=== PATIENT | female | born 1985 | race Caucasian/White ===

== ENCOUNTER 2020-09-01 17:34 | Emergency (ER) | payer BC, SELFPAY ==
[2020-09-01 17:49] VITALS: BP 124/80; PULSE 97; RESP 20; TEMP 36.4; O2SAT 100
--- NOTE | 2020-09-01 18:57 | ED.SKABFB ---
HPI - Skin/Abscess/Foreign Bdy General Chief complaint: Skin/Abscess/Foreign Body Stated complaint: Lump in the back of leg Time Seen by Provider: 09/01/20 18:40 Source: patient and RN notes reviewed Mode of arrival: ambulatory Limitations: no limitations History of Present Illness HPI narrative: 34 year old female presents to express care with complaints of firm bruised area to the posterior aspect of her left lower leg medially that she noticed today. Patient denies any known injury to her leg, denies any acute pain to area on palpation and no warmth to area. Patient states that she was concerned she could have blood clot there since she is on control. Patient has no pain to calf region of left lower leg and has negative Homans sign. MD complaint: discoloration and other (firm tissue) Onset (ago): day(s) (1) Treatments prior to arrival: none Related Data Home Medications Medication Instructions Recorded Confirmed trazodone 50 mg PO HS 09/01/20 09/01/20 Allergies Allergy/AdvReac Type Severity Reaction Status Date / Time sertraline Allergy Hives Verified 09/01/20 18:24 Review of Systems Review of Systems: Narrative: CONSTITUTIONAL: Denies fever, chills, or sweats. EYES: Denies visual changes, redness, or discharge. ENT: Denies rhinorrhea, congestion, sore throat, or otalgia. CARDIOVASCULAR: Denies chest pain, palpitations, or edema. RESPIRATORY: Denies cough or dyspnea. GASTROINTESTINAL: Denies abdominal pain, nausea, vomiting, or diarrhea. GENITOURINARY: Denies dysuria or hematuria. SKIN: Denies rash or itching.raised discolored area to the posterior medial aspect of left lower leg, no pain on palpation MUSCULOSKELETAL: Denies back pain, joint pain, or myalgia. NEUROLOGIC: Denies headache, numbness, or weakness. PSYCHIATRIC: Denies anxiety or depression. All systems reviewed & are unremarkable except as noted in HPI and below PMFSH Past Medical History Medical History (Updated 09/04/20 @ 20:24 by Dacia Chandra NP) No active medical problems Surgical History Surgical History (Updated 09/04/20 @ 20:24 by Dacia Chandra NP) No history of previous surgery Family History Family History (Updated 09/04/20 @ 20:25 by Dacia Chandra NP) Other No significant family history Social History Social History (Updated 09/04/20 @ 20:25 by Dacia Chandra NP) Smoking status: Former smoker Alcohol intake: current Alcohol use details: social Substance use: never Living arrangements: with family Gender identity (if verbalized by the patient): Female Comments At time of signature, agree with nursing past medical, surgical, social and family history. There is no relevant family history pertinent to the presenting complaint Exam Narrative: Exam Narrative: GENERAL: Well-appearing, well-nourished, and in no acute distress. HEAD: Normocephalic, atraumatic. EYES: PERRLA and EOMI. ENT: Nares clear, no rhinorrhea or epistaxis. Mucous membranes moist. NECK: Supple.no lymphadenopathy CHEST: Clear to auscultation. No respiratory distress.[id number]% on room air HEART: Regular rate and rhythm. No murmur heard. Normal peripheral pulses. ABDOMEN: Soft, nontender, nondistended, normal active bowel sounds. EXTREMITIES: Normal range of motion. No edema. SKIN: Warm, dry, no rash. 3 cm length by 1 cm width raised slight firm discolored area to posterior medial left lower leg no warmth noted, negative Homans sign, denies any pain to area or calf of left leg. Patient denies any tingling or numbness to her left leg or foot, strong pulses present with foot warm and mobile. NEURO: No focal deficits. Alert and oriented x3. Course Vital Signs Vital signs: Vital Signs Temperature 36.4 C 09/01/20 17:49 Pulse Rate 97 09/01/20 17:49 Respiratory Rate 20 09/01/20 17:49 Blood Pressure 124/80 09/01/20 17:49 Pulse Oximetry 100 09/01/20 17:49 Temperature 36.4 C 09/01/20 17:49 Pulse Rate
== END 2020-09-01 19:10 | disposition home or self-care (01) ==
PROVIDERS: Emergency Provider Registered Nurse
DX: S80.12XA Contusion of left lower leg, initial encounter (principal); X58.XXXA Exposure to other specified factors, initial encounter; Z87.891 Personal history of nicotine dependence
CPT/HCPCS: 99213; G0463